=== PATIENT | male | born 1975 | race Two or more races ===

== ENCOUNTER 2020-12-13 19:11 | Emergency (ER) | payer OTHER ==
--- NOTE | 2020-12-13 21:15 | NUR ---
Please call non-emergent [facility] number when patient is ready for d/c. [phone]
--- NOTE | 2020-12-13 21:26 | NUR ---
MD EVALUATED PT, AND D/C INSTRUCTIONS RECEIVED. F/U AND D/C INSTRUCTIONS PROVIDED, AND PT IN [employer] C[employer] AND TAKEN BY THEM.
== END 2020-12-13 21:28 ==
LOC: ED 19:16
DX: M54.5 Low back pain (principal); M25.512 Pain in left shoulder
CPT/HCPCS: 99283